=== PATIENT | female | born 1990 | race Caucasian/White ===

== ENCOUNTER → 2018-07-29 | Outpatient (CLI) | payer OTHER ==
--- NOTE | 2018-07-29 13:38 | US ---
EXAMINATION TYPE: US abdomen complete DATE OF EXAM: 07/29/2018 COMPARISON: NONE CLINICAL HISTORY: R10.11 RUQ PAIN, after meals, nausea EXAM MEASUREMENTS: Liver Length: 11.7 cm Gallbladder Wall: 0.2 cm CBD: 0.3 cm Spleen: 11.1 cm Right Kidney: 9.8 x 4.9 x 4.9 cm Left Kidney: 10.4 x 4.4 x 4.7 cm Pancreas: wnl Liver: wnl Gallbladder: nonmobile, hyperechoic wall focus noted posterior wall = 0.3 x 0.2 x 0.2cm may be wall polyp Evidence for sonographic Acevedo's sign: tender here CBD: wnl Spleen: wnl Right Kidney: wnl Left Kidney: wnl Upper IVC: wnl Abd Aorta: wnl IMPRESSION: 1.nonmobile, hyperechoic wall focus noted posterior wall = 0.3 x 0.2 x 0.2cm may be wall polyp
== END ==
LOC: RADUSWWP 12:45
PROVIDERS: ATTEND Family Medicine
DX: R10.11 Right upper quadrant pain (principal)
CPT/HCPCS: 76700